=== PATIENT | female | born 1995 | race African-American/Black ===

== ENCOUNTER 2016-04-26 15:35 | Emergency (ER) | payer MEDICAID, SELFPAY ==
[2016-04-26] MEDS ORDERED: Dexamethasone 4 MG TAB ONE (16:47)
== END 2016-04-26 17:00 | disposition home or self-care (01) ==
LOC: MADERS 15:35
DX: J06.9 Acute upper respiratory infection, unspecified (principal); J40 Bronchitis, not specified as acute or chronic; F31.9 Bipolar disorder, unspecified
CPT/HCPCS: 87430; 99283; J8540

== ENCOUNTER 2017-03-02 11:12 | Emergency (ER) | payer SELFPAY | END 2017-03-02 12:32 | disposition home or self-care (01) | LOC: MADERS 11:12 | DX: J02.9 Acute pharyngitis, unspecified (principal); J40 Bronchitis, not specified as acute or chronic; F31.9 Bipolar disorder, unspecified | CPT/HCPCS: 87081; 87430; 99283 ==

== ENCOUNTER 2017-03-25 01:59 | Emergency (ER) | payer SELFPAY ==
[2017-03-25 02:50] LABS: Wet Prep Clue Cells Clue Cells Absent (None Seen); Wet Prep Spermatozoa 2nd Revie Agree with result (None Seen); Wet Prep Trichomonas Trichomonas Absent (None Seen)
[2017-03-29 00:47] LABS: Chlamydia by PCR Inconclusive (NotDetected)
[2017-03-29 00:48] LABS: GC by PCR Inconclusive (NotDetected)
== END 2017-03-25 03:00 | disposition home or self-care (01) ==
LOC: MADERS 01:59
DX: N89.8 Other specified noninflammatory disorders of vagina (principal); F31.9 Bipolar disorder, unspecified
CPT/HCPCS: 87210; 87491; 87591; 99283

== ENCOUNTER 2017-04-11 15:07 | Emergency (ER) | payer SELFPAY | END 2017-04-11 16:13 | disposition left against medical advice (07) | LOC: MADERS 15:07 | DX: Z53.21 Procedure and treatment not carried out due to patient leaving prior to being seen by health care provider (principal) ==

== ENCOUNTER 2017-06-18 14:55 | Emergency (ER) | payer SELFPAY | END 2017-06-18 15:40 | disposition home or self-care (01) | LOC: MADERS 14:55 | DX: J15.7 Pneumonia due to Mycoplasma pneumoniae (principal); F31.9 Bipolar disorder, unspecified | CPT/HCPCS: 99283 ==

== ENCOUNTER 2017-08-06 15:18 | Emergency (ER) | payer MEDICAID, SELFPAY ==
[2017-08-06] MEDS ORDERED: Ondansetron ODT 4 MG TAB ONE (15:29)
[2017-08-06 16:15] LABS: Bilirubin Small (Negative); Blood, Urine Trace (Negative); Clarity Slightly Cloudy (Clear); Glucose, Urine (Dipstick) Negative (Negative); Leukocyte Large (Negative); Nitrite Negative (Negative); Pregnancy Test - Urine (BHCG) POSITIVE (Negative); Pregu Control Background? CLEAR/WHITE (CLR/WHITE); Pregu Control Bar Appear? YES (CONTROL BAR); Protein, Urine (Dipstick) 30 mg/dL (Neg-Trace); Urobilinogen > or = 8.0 mg/dL (0.2-1.0)
[2017-08-06 16:16] LABS: Bacteria/HPF 4+ HPF (None Seen); WBC/HPF 21-50 HPF (0-3)
[2017-08-06] MEDS ORDERED: Nitrofurantoin Monohyd/M-Cryst 100 MG CAP ONE (16:59)
== END 2017-08-06 16:40 | disposition home or self-care (01) ==
LOC: MADERS 15:18
DX: O23.11 Infections of bladder in pregnancy, first trimester (principal); O99.341 Other mental disorders complicating pregnancy, first trimester; F31.9 Bipolar disorder, unspecified; Z3A.00 Weeks of gestation of pregnancy not specified
CPT/HCPCS: 81003; 81015; 81025; 99283; Q0162

== ENCOUNTER 2017-10-09 10:42 | Outpatient (CLI) | payer MEDICAID ==
[2017-10-09 13:14] LABS: #Eosinphils 0.4 thou/uL (0.0-0.7); #Lymphocytes 1.3 thou/uL (1.20-3.40); #Monocytes 0.3 thou/uL (0.11-0.59); #Neutrophils 3.4 thou/uL (1.40-6.50); %Basophils 0.7 % (0.0-1.0); %Lymphocytes 23.6 % (21.0-51.0); %Monocytes 4.8 % (0.0-10.0); %Neutrophils 62.9 % (42.0-75.0); Hemoglobin 10.3 g/dL (12.0-16.0); Mean Corpuscular HGB CONC 34.2 g/dL (32.0-36.0); Mean Corpuscular Hemoglobin 30.1 pg (27.0-31.0); Mean Corpuscular Volume 88.1 fL (78.0-98.0); Mean Platelet Volume 7.8 fL (7.4-10.4); Platelet Count 272 thou/uL (130-400); Red Blood Cell (RBC) Count 3.41 mill/uL (4.20-5.40); White Blood Cell (WBC) Count 5.4 thou/uL (4.8-10.8)
[2017-10-09 17:28] LABS: HIV (1/2) Antibody/Antigen Non-Reactive (NonReactive); HIV 1/2 INDEX 0.14 S/CO (<1.00)
[2017-10-09 17:30] LABS: Syphilis Antibody Nonreactive (Nonreactive); Syphilis Antibody Index 0.03 S/CO (<1.00 Non-Reactive)
== END 2017-10-09 10:43 | disposition home or self-care (01) ==
LOC: MADLABBHPM 10:42
PROVIDERS: ATTEND Family Medicine
DX: Z34.83 Encounter for supervision of other normal pregnancy, third trimester (principal)
CPT/HCPCS: 36415; 82950; 85025; 86780; 87389

== ENCOUNTER 2018-09-23 17:20 | Emergency (ER) | payer MEDICAID, OTHER | END 2018-09-23 17:57 | disposition home or self-care (01) | LOC: MADERS 17:20 | DX: K02.9 Dental caries, unspecified (principal); F31.9 Bipolar disorder, unspecified | CPT/HCPCS: 99282 ==

== ENCOUNTER 2019-01-22 16:22 | Emergency (ER) | payer SELFPAY ==
[2019-01-22 17:17] LABS: Bilirubin Negative (Negative); Blood, Urine Trace (Negative); Glucose, Urine (Dipstick) Negative (Negative); Leukocyte Small (Negative); Nitrite Negative (Negative); Protein, Urine (Dipstick) Negative (Neg-Trace); Urobilinogen 0.2 mg/dL (Less than 2)
[2019-01-22 17:25] LABS: Clarity Hazy (Clear)
[2019-01-22 17:26] LABS: Bacteria/HPF 2+ HPF (None Seen); Pregnancy Test - Urine (BHCG) Negative (Negative); Pregu Control Background? CLEAR/WHITE (CLR/WHITE); Pregu Control Bar Appear? YES (CONTROL BAR); RBC/HPF 0-3 HPF (0-3); Specific Gravity 1.026 (1.002-1.036)
[2019-01-22] MEDS ORDERED: Ondansetron ODT 4 MG TAB ONE (18:10)
== END 2019-01-22 18:15 | disposition home or self-care (01) ==
LOC: MADERS 16:22
DX: A08.4 Viral intestinal infection, unspecified (principal); F31.9 Bipolar disorder, unspecified
CPT/HCPCS: 81003; 81015; 81025; 99284; Q0162

== ENCOUNTER 2019-12-03 12:43 | Emergency (ER) | payer SELFPAY ==
[2019-12-03] MEDS ORDERED: predniSONE 20 MG TAB ONE (13:40)
[2019-12-03] MEDS ORDERED: hydrOXYzine 25 MG TAB ONE (13:40)
== END 2019-12-03 13:44 | disposition home or self-care (01) ==
LOC: MADERS 12:43
DX: L29.9 Pruritus, unspecified (principal); F31.9 Bipolar disorder, unspecified
CPT/HCPCS: 99282; J7512

== ENCOUNTER 2020-09-09 08:34 | Emergency (ER) | payer SELFPAY ==
[2020-09-09 08:54] LABS: Bilirubin Negative (Negative); Blood, Urine Trace (Negative); Glucose, Urine (Dipstick) Negative (Negative); Ketone, Urine Negative (Negative); Leukocyte Large (Negative); Nitrite Negative (Negative); Protein, Urine (Dipstick) Negative (Neg-Trace); Urobilinogen 0.2 mg/dL (Less than 2)
[2020-09-09 09:00] LABS: Pregnancy Test - Urine (BHCG) Negative (Negative); Specific Gravity 1.023 (1.002-1.036)
[2020-09-09 09:01] LABS: Clarity Hazy (Clear); Pregu Control Background? CLEAR/WHITE (CLR/WHITE); Pregu Control Bar Appear? YES (CONTROL BAR); Specific Gravity, Urine 1.023 (1.002-1.036)
[2020-09-09 09:02] LABS: RBC/HPF 0-3 HPF (0-3)
[2020-09-09 09:03] LABS: Bacteria/HPF 2+ HPF (None Seen); WBC/HPF 21-50 HPF (0-3)
[2020-09-09] MEDS ORDERED: Ondansetron ODT 4 MG TAB ONE (09:05)
[2020-09-09] MEDS ORDERED: Ketorolac Tromethamine 30 MG/ML VIAL ONE (09:05)
[2020-09-09 09:22] LABS: #Basophils 0.1 thou/uL (0.0-0.2); #Eosinphils 0.5 thou/uL (0.0-0.7); #Lymphocytes 1.1 thou/uL (1.20-3.40); #Monocytes 0.6 thou/uL (0.11-0.59); #Neutrophils 4.6 thou/uL (1.40-6.50); %Basophils 1.8 % (0.0-1.0); %Eosinophils 7.7 % (0.0-10.0); %Lymphocytes 15.9 % (21.0-51.0); %Monocytes 9.1 % (0.0-10.0); %Neutrophils 65.6 % (42.0-75.0); Mean Corpuscular HGB CONC 31.3 g/dL (32.0-36.0); Mean Corpuscular Hemoglobin 29.7 pg (27.0-31.0); Mean Platelet Volume 8.2 fL (7.4-10.4); Platelet Count 307 thou/uL (130-400); RBC Distribution Width 11.5 % (11.5-14.5); Red Blood Cell (RBC) Count 4.05 mill/uL (4.20-5.40); White Blood Cell (WBC) Count 7.1 thou/uL (4.8-10.8)
[2020-09-09 09:35] LABS: ALT (SGPT) 20 U/L (8-55); AST (SGOT) 14 U/L (5-34); Albumin 4.1 g/dL (3.5-5.0); Alkaline Phosphatase 70 U/L (40-110); Anion Gap 10 mmol/L (10-20); BUN (Urea Nitrogen) 15 mg/dL (7.0-18.7); Bilirubin, Total 0.5 mg/dL (0.2-1.2); Calc. Creatinine Clearance 0 mL/min (70-130); Calcium 9.1 mg/dL (7.8-10.44); Carbon Dioxide 24 mmol/L (22-29); Chloride 107 mmol/L (98-107); Globulin 3.2 g/dL (2.4-3.5); Glucose 99 mg/dL (70-105); Lipase 24 U/L (8-78); Potassium 4.1 mmol/L (3.5-5.1); Protein, Total 7.3 g/dL (6.0-8.3); Sodium 137 mmol/L (136-145)
== END 2020-09-09 10:05 | disposition home or self-care (01) ==
LOC: MADERS 08:34
DX: N30.00 Acute cystitis without hematuria (principal); R10.33 Periumbilical pain
CPT/HCPCS: 80053; 81003; 81015; 81025; 83690; 85025; 87086; 96372; 99284; J1885; Q0162

== ENCOUNTER 2020-10-05 16:11 | Emergency (ER) | payer SELFPAY | END 2020-10-05 17:24 | disposition home or self-care (01) | LOC: MADERS 16:11 | DX: J01.90 Acute sinusitis, unspecified (principal) | CPT/HCPCS: 99283 ==

== ENCOUNTER 2021-02-24 11:38 | Emergency (ER) | payer SELFPAY ==
[2021-02-25 13:06] LABS: SARS-CoV-2 PCR by NAA DETECTED (NotDetected)
== END 2021-02-24 12:12 | disposition home or self-care (01) ==
LOC: MADERS 11:38 → EEVIPCON 11:38 → MADERS 12:12
DX: U07.1 COVID-19 (principal); J06.9 Acute upper respiratory infection, unspecified
CPT/HCPCS: 99283; U0003; U0005

== ENCOUNTER 2021-09-01 17:48 | Outpatient (CLI) | payer BC ==
[2021-09-02 12:03] LABS: Chlamydia by PCR Not Detected (NotDetected); GC by PCR Not Detected (NotDetected)
== END 2021-09-01 17:49 | disposition home or self-care (01) ==
LOC: MADLAB 17:48
PROVIDERS: ATTEND Registered Nurse
DX: Z00.01 Encounter for general adult medical examination with abnormal findings (principal)
CPT/HCPCS: 87491; 87591; 87624; 87661; 88175